=== PATIENT | female | born 1965 | race Caucasian/White ===

== ENCOUNTER 2018-08-03 18:49 | Emergency (ER) | payer BC ==
--- OUTSIDE RECORDS SUMMARY | 2018-08-03 20:20 | XMS REPORT | Continuity of Care Document ---
:1965 External Reference #:[id number] Author Name Sue Courtney M.D. Address [address] [facility] [place] [address] Care Team Providers Name Role Phone Sue Courtney Care Team Information Sheet Rocker Unavailable Sue Courtney Primary Care Physician Unavailable Payers Date Identification Numbers Payment Provider Subscriber Effective: 2011 Policy Number: [id number] Delvis Mercer Group Name: Rosalinda Hendrix Jose [address] [address] PayID: [id number] [place] [address] Advance Directives Description No Information Available Problems Date Description Provider Status Onset: 07/06/2018 Adjustment disorder with mixed Sue Courtney M.D. Active emotional features Family History Date Family Member(s) Observation Comments General No fam hx lung, colon, breast CA. no female cancers. No DM, SD, Stroke. Father Healthy. [place]. Mother 73 dt sepsis from diverticulosis. HTN, diverticulosis. Number of Children 3. ages 22, 25, 30. middle child/daughter has uveitis and pars plenitis - autoimmune inflammatory eye diseases. Had lenses surgically implanted age 22. First Brother HTN. [place]. First Sister healthy. [place]. Social History Type Date Description Comments Sex Unknown Marital Status Patient is Pets Household pets include 2 dogsHousehold pets dog - 03/2017. Occupation hazardous materials waste technician and phlebotomy Tobacco Use Start: Unknown Never Smoked Cigarettes ETOH Use Social Alcohol 2 drinks on a weekend night. Tobacco Use Start: Unknown Patient has never smoked Smoking Status Reviewed: 07/06/18 Patient has never smoked Exercise Type/Frequency Exercises regularly, Current strength/cross training 4-5 days a week. Seat Belt/Car Seat Always uses a seat belt Currently Active The patient is currently sexually active Contraceptive Methods Does not currently use any method of control Allergies, Adverse Reactions, Alerts Date Description Reaction Status Severity Comments 11/30/2012 NKDA Active 08/01/2009 Dust Active 08/01/2009 Seasonal Active 08/01/2009 PET Dander Active 08/01/2009 Fragrance Active 08/01/2009 Lactose Intolerence Active 08/01/2009 Blush Radha/Red Radha Active Medications Medication Date Status Form Strength Qnty SIG Indications Ordering Provider Vitamin D 08/08/ Active Capsules 68281Brpo 8caps take 1 Sue LSudha (Ergocalciferol 2018 capsule Roz, ) by mouth M.D. once weekly for 8 weeks total Vitamin D 07/14/ Active Tablets 2000Unit once Sue L. 2018 daily. Rachael Courtney Escitalopram 08/19/ Active Tablets 10mg 30tabs 1 by F43.21 Sue Vee Oxalate 2017 mouth Roz, every day M.D. Vitamin B12 / Active Tablets ER 1000mcg 1 by Unknown 0000 mouth every day Ciprofloxacin 07/13/ Hx Tablets 500mg 10tabs 1 by N39.0 Mary HCL 2016 - mouth Spencer, 08/19/ twice a RAD TECH 2016 day x 5d Escitalopram 07/06/ Hx Tablets 5mg 30tabs 1 by F43.21 Sue L. Oxalate 2016 - mouth Roz, 08/19/ every day M.D. 2016 Vitamin D 06/17/ Hx Capsules 51983Txfr 4caps take 1 Sue L. (Ergocalciferol 2016 - capsule Roz, ) 10/20/ by mouth M.D. 2016 once weekly for 8 weeks total Macrobid 06/19/ Hx Capsules 100mg 10caps 1 po bid Imani 2013 - with Roseorf, 06/24/ meals Afnp-C 2013 Zyrtec Allergy 11/30/ Hx Tablets 10mg 30tabs 1 po qd 477.9 Melisa 2012 - ;september fill Kevin, 03/10/ w/ Afnp-C 2015 generic Fluticasone 11/30/ Hx Suspension 50mcg/Act 1units 2 sprays 477.9 Sue L. Propionate 2012 - each Roz 03/10/ noskaris Cano 2015 qd Astelin 08/01/ Hx Solution 137mcg/Spr 1units 2 sprays 477.9 Melisa 2009 - ay per Kevin, 11/29/ nostril Afsabine-C 2012 bid Xyzal 08/01/ Hx Tabs 5mg 30tabs Take One 477.9 Melisa 2009 - Tablet By Kevin, 11/29/ Mouth Afsabine-C 2012 Every Day Benadryl / Hx Capsules 25mg 1-2 caps Unknown 0000 - q 4-6h 01/10/ prn 2012 Fish Oil / Hx Capsules 1000mg 1 po qd Unknown 0000 - 2012 Fibercon / Hx Tablets 625mg 60tabs 1po bid Unknown 0000 - with 2012 Claritin / Hx Tablets 10mg 30tabs 1 po qd Unknown 0000 - 2012 Benadryl / Hx Capsules 25mg 2 po qhs Unknown - 2016 Immunizations CPT Code Status Date Vaccine Lot # [id number] Given 07/04/2015 Tdap Tetanus, W Pertussis Vital Signs Date Vital Result Comment 07/06/2018 10:06am BP Systolic 116 mmHg BP Diastolic 78 mmHg Heart Rate 68 /min Body Temperature 98.1 F Respiratory Rate 18 /min Height 61 inches 5'1" Weight 147.00 lb BMI (Body Mass Index) 27.8 kg/m2 07/14/2017 1:32pm BP Systolic 108 mmHg BP Diastolic 60 mmHg Heart Rate 72 /min Body Temperature 97.8 F Respiratory Rate 16 /min Height 61.5 inches 5'1.50" Weight 146.50 lb BMI (Body Mass Index) 27.2 kg/m2 05/26/2017 1:06pm BP Systolic 112 mmHg BP Diastolic 78 mmHg Heart Rate 66 /min Body Temperature 98.7 F Respiratory Rate 16 /min Height 61.5 inches 5'1.50" Weight 146.00 lb BMI (Body Mass Index) 27.1 kg/m2 10/20/2016 3:44pm BP Systolic 110 mmHg BP Diastolic 70 mmHg Heart Rate 68 /min Body Temperature 98.4 F Respiratory Rate 16 /min Height 62 inches 5'2" Weight 143.00 lb BMI (Body Mass Index) 26.2 kg/m2 08/19/2016 1:39pm BP Systolic 110 mmHg BP Diastolic 70 mmHg Heart Rate 68 /min Body Temperature 98.6 F Height 62 inches 5'2" Weight 138.00 lb BMI (Body Mass Index) 25.2 kg/m2 07/13/2016 3:44pm BP Systolic 120 mmHg BP Diastolic 70 mmHg Heart Rate 68 /min Body Temperature 98.4 F Respiratory Rate 18 /min Height 62 inches 5'2" Weight 138.00 lb BMI (Body Mass Index) 25.2 kg/m2 07/06/2016 6:46pm BP Systolic 110 mmHg BP Diastolic 70 mmHg Heart Rate 78 /min Body Temperature 98.1 F Respiratory Rate 16 /min Height 62 inches 5'2" Weight 139.38 lb BMI (Body Mass Index) 25.5 kg/m2 05/07/2016 12:57pm BP Systolic 100 mmHg BP Diastolic 60 mmHg Heart Rate 76 /min Body Temperature 98.1 F Respiratory Rate 16 /min Height 62 inches 5'2" Weight 132.00 lb BMI (Body Mass Index) 24.1 kg/m2 03/10/2016 9:41am BP Systolic 122 mmHg BP Diastolic 76 mmHg Heart Rate 68 /min Body Temperature 98.0 F Respiratory Rate 16 /min Height 61.5 inches 5'1.50" Weight 136.00 lb BMI (Body Mass Index) 25.3 kg/m2 06/19/2013 9:22am BP Systolic 110 mmHg BP Diastolic 72 mmHg Heart Rate 68 /min Body Temperature 98.3 F Respiratory Rate 16 /min Height 61.5 inches 5'1.50" Weight 139.00 lb BMI (Body Mass Index) 25.8 kg/m2 01/10/2013 10:39am BP Systolic 110 mmHg BP Diastolic 70 mmHg Heart Rate 64 /min Body Temperature 98.5 F Respiratory Rate 16 /min Height 61.5 inches 5'1.50" Weight 139.50 lb BMI (Body Mass Index) 25.9 kg/m2 Right Visual Acuity Distance 20/20 [facility] Left Visual Acuity Distance 20/20 11/30/2012 9:08am BP Systolic 104 mmHg BP Diastolic 64 mmHg Heart Rate 78 /min Body Temperature 98.2 F Height 61 inches 5'1" Weight 135.50 lb BMI (Body Mass Index) 25.6 kg/m2 08/01/2009 1:15pm BP Systolic 110 mmHg BP Diastolic 68 mmHg Heart Rate 78 /min Body Temperature 98.7 F Height 61 inches 5'1" Weight 148.00 lb BMI (Body Mass Index) 28.0 kg/m2 Results Test Date Facility Test Result H/L Range Note 1,25-Dihydroxy 07/14/2017 [facility] Total 52 pg/mL 1, 2 Vitamin D By [place] [address] [facility] 1,25-Dihydroxy, [place] [address] Vitamin D (607)- - 1,25-Dihydroxy, Vitamin D-2 <10 pg/mL 1,25-Dihydroxy, Vitamin D-3 52 pg/mL Laboratory test 07/14/2017 Pierce Mikaela ([facility]) Vitamin D25 12 Low 30- 100 finding Laboratory test 05/26/2017 [facility] Antinuclear Negative [address] [place] [address] Antibodies, [place] [address] (608)- - Rheumatoid 05/26/2017 [facility] Ra Latex <10.0 IU/mL 0.0-13.9 Arthritis Factor [address] [place] [address] [facility] ([facility]) [place] [address] (605)- - CCP Abs Igg/Iga 05/26/2017 [facility] CCP Antibodies 2 units 0-[address] [place] [address] IgG/[place] [address] (600)- - Laboratory test 05/26/2017 [facility] ([facility]) TSH 1.68 mIU/L 0.50- 6.00 finding Comprehensive 05/26/2017 [facility] ([facility]) Sodium 142 mEq/L 134-149 Metabolic Prof Potassium 4.0 mEq/L 3.6-5.5 Chloride 104 mEq/L 94-112 Carbon Dioxide 29 mEq/L 21-32 Glucose 94 mg/dL 70-105 BUN 14 mg/dL 6-26 Creatinine 0.8 mg/dL 0.6-1.4 BUN/Creat Ratio 17.5 CALC 8.0-36.0 Calcium 9.5 mg/dL 8.6-10.2 Total Protein 7.4 g/dL 6.4-8.3 Albumin 4.8 g/dL 3.8-5.5 Globulin 2.6 g/dL 2.0-4.8 A/G Ratio 1.8 CALC 0.6-2.3 Alk. Phosphatase 46 U/L 30-110 Alt (SGPT) 26 U/L 7-35 Ast (Sgot) 22 U/L 5-34 Total Bilirubin 1.0 mg/dL 0.2-1.3 GFR Non- >60 ml/min/1.73m^ >=60 GFR >60 ml/min/1.73m^ >=60 CBC Electronic ([facility]) 05/26/2017 [facility] WBC 6.3 3.6-9.6 (607)- - RBC 4.51 3.90-5.70 Hemoglobin ([facility]/CMC/CTX) 14.5 g/dL 12.1 - 17.2 Hematocrit ([facility]ma/CMC/CTX) 43.6 % 36.1 - 50.3 Platelets 260 10^3/ul 150-400 Lymph% 31.6 % 17.0-48.0 Mixed% 4.3 Neutrophils % 64.1 Mean Corpuscular Vol 97 82.2-97.4 Mean Corpuscular Hemoglobin 32.1 27.6-33.3 Mean Corpuscular Hemo Concen 33.2 32.0-36.0 RDW 14.2 High 11.6-13.7 Mean Platelet Volume 7.2 5.5-11.0 Laboratory test finding 05/26/2017 [facility] Sedimentation Rate 9mm (607)- - Ua - Micro ([facility]) 07/13/2016 [facility] Appearance clear (607)- - Color yellow Glucose, Urine ([facility]ma/CMC/CTX) neg Bilirubin neg Ketones neg SP Grav <1.005 Blood neg PH 6.5 Protein neg Urobil 0.2 Nitrite neg Leukocytes (a/CMC/[facility]) neg Hyaline - /Lpf Granular - /Lpf WBC ([facility]) 0-1 # RBC - Mucus - /Lpf Epith occass /Lpf # Bacteria trace /Hpf # Amorphous - /Lpf Crystals, Fluid (a/CMC/CTX) - Z#Comments - Laboratory test 07/13/2016 [facility] Urine Culture positive Low > 100,000 finding (607)- - ([facility]ma/CMC) cfu/L=i Complete Blood 05/07/2016 Pierce Mikaela ([facility]) WBC 6.4 x10^3/UL 3.6-9.6 Count RBC 4.11 x10^6/UL 3.90-5.70 HGB 13.4 g/dL 12.1-17.2 HCT 39 % 36-50 MCV 95.0 fL 82.2-97.4 MCH 32.6 pg 27.6-33.3 MCHC 34.2 g/dL 33.0-35.5 RDW 12.9 % 11.6-13.7 PLT 291 x10^3/UL 150-400 MPV 6.4 fL Low 7.4-10.4 Gran # 4.4 x10^3/UL 1.5-7.2 Lymph# 1.7 x10^3/UL 0.7-4.9 Ada# 0.3 x10^3/UL 0.1-0.9 Gran % 68.4 % 42.2-75.2 Lymph % 26.8 % 20.5-51.1 Ada% 4.8 % 1.7-9.3 Laboratory test finding 05/07/2016 Stan Mikaela ([facility]) TSH 2.32 mIU/L 0.50-6.00 Comprehensive Metabolic 05/07/2016 Stan Mikaela ([facility]) Sodium 138 mEq/L 134-149 Prof Potassium 4.0 mEq/L 3.6-5.5 Chloride 96 mEq/L 94-112 Carbon Dioxide 26 mEq/L 21-32 Glucose 98 mg/dL 70-105 BUN 11 mg/dL 6-26 Creatinine 0.8 mg/dL 0.6-1.4 BUN/Creat Ratio 13.8 CALC 8.0-36.0 Calcium 9.5 mg/dL 8.6-10.2 Total Protein 6.9 g/dL 6.4-8.3 Albumin 4.3 g/dL 3.8-5.5 Globulin 2.6 g/dL 2.0-4.8 A/G Ratio 1.7 CALC 0.6-2.3 Alk. Phosphatase 46 U/L 30-110 Alt (SGPT) 12 U/L 7-35 Ast (Sgot) 12 U/L 5-34 Total Bilirubin 0.9 mg/dL 0.2-1.3 GFR Non- >60 ml/min/1.73m^ >=60 GFR >60 ml/min/1.73m^ >=60 Laboratory test 05/07/2016 Pierce Mikaela ([facility]) Vitamin D25 11 Low 30- 100 5 finding Lipid Profile 05/07/2016 Pierce Mikaela (a) Cholesterol 227 mg/dL High 120-200 Triglycerides 51 mg/dL 30-200 HDL Cholesterol 97 mg/dL High 30-85 6 LDL (Calculated) 120 CALC 0-129 VLDL Cholesterol 10 mg/dL 0-50 HDL Risk Factor 2.3 CALC 0.0-4.4 Laboratory test 01/19/2016 [facility] Urine Culture And SEE RESULT BELOW 7, 8 finding Sensitivities Laboratory test 06/19/2013 [facility] Urine Culture Escherichia coli 9 finding [address] [place] [address] [phone] Ua - Micro (a) 06/19/2013 [facility] Appearance CLOUDY (607)- - Color YELLOW Glucose NEG Bilirubin NEG Ketones NEG SP Grav 1.010 Blood SMALL # PH 6.0 Protein NEG Urobil 0.2 Nitrite POS # Leukocytes ([facility]ma/[facility]) SMALL # Hyaline - /Lpf Granular - /Lpf WBC ([facility]) 20-30 # RBC 10-12 # Mucus - /Lpf Epith RARE /Lpf # Bacteria 3+ /Hpf # Amorphous - /Lpf Crystals, Fluid ([facility]ma/CMC/CTX) - Z#Comments - CBC Auto Diff 01/11/2013 [facility] White Blood Count 6.9 10^3/uL 4.8-10.8 Red Blood Count 4.54 10^6/uL 4.0-5.4 Hemoglobin 14.1 g/dL 12.0-16.0 Hematocrit 44 % 35-47 Mean Corpuscular Volume 97 fL 80-97 Mean Corpuscular Hemoglobin 31 pg 27-31 Mean Corpuscular HGB Conc 32 g/dL 31-36 Red Cell Distribution Width 14 % 10.5-15 Platelet Count 247 10^3/uL 150-450 Mean Platelet Volume 9 um3 7.4-10.4 Abs Neutrophils 4.4 10^3/uL 1.5-7.7 Abs Lymphocytes 1.6 10^3/uL 1.0-4.8 Abs Monocytes 0.4 10^3/uL 0-0.8 Abs Eosinophils 0.4 10^3/uL 0-0.6 Abs Basophils 0 10^3/uL 0-0.2 Abs Nucleated RBC 0 10^3/uL Granulocyte % 64.4 % 38-83 Lymphocyte % 23.7 % Low 25-47 Monocyte % 6.1 % 1-9 Eosinophil % 5.3 % 0-6 Basophil % 0.5 % 0-2 Nucleated Red Blood Cells % 0 Comp Metabolic Panel 01/11/2013 [facility] Sodium 137 mmol/L 133-145 Potassium 4.7 mmol/L 3.5-5.0 Chloride 102 mmol/L 101-111 Co2 Carbon Dioxide 28.0 mmol/L 22-32 Anion Gap 7.0 mmol/L 2-11 Glucose 78 mg/dL 70-100 Blood Urea Nitrogen 16 mg/dL 6-24 Creatinine 0.70 mg/dL 0.50-1.40 BUN/Creatinine Ratio 22.9 High 8-20 Calcium 9.4 mg/dL 8.1-9.9 Total Protein 6.3 g/dL 6.2-8.1 Albumin 4.1 g/dL 3.6-5.4 Globulin 2.2 g/dL 2-4 Albumin/Globulin Ratio 1.9 1-3 Total Bilirubin 1.3 mg/dL 0.4-1.5 Alkaline Phosphatase 59 U/L 30-110 Alt 12 U/L Low 14-54 Ast 16 U/L 12-42 Egfr Non- 90.1 >60 Egfr 115.9 >60 10 Lipid Profile (Trig/Chol/HDL) 01/11/2013 [facility] Triglycerides 56 mg/dL 40- 200 Cholesterol 235 mg/dL High Less than 200 HDL Cholesterol 80 mg/dL High 40-60 11 Cholesterol/HDL Ratio 2.9 Average 1-4.44 LDL Cholesterol 143.8 High Less Than 100 12 Ua - Non Micro ([facility]) 01/10/2013 [facility] Appearance clear (607)- - Color yellow Glucose - Bilirubin - Ketones - SP Grav 1.010 Blood - PH 6.5 Protein - Urobil 0.2 Nitrite - Leukocytes ([facility]) - 1 1sst 2 Reference Range: Adults: 21 - 65 3 Negative <1:80 Borderline 1:80 Positive >1:80 4 Negative <20 Weak positive 20 - 39 Moderate positive 40 - 59 Strong positive >59 5 RESULTS VERIFIED BY REPEAT ANALYSIS 6 RESULTS VERIFIED BY REPEAT ANALYSIS 7 [id number] SEE RESULT BELOW Name: DAMARI MERCER : [address]: Marlee Colin MD Acct: [id number] Unit: [id number] AGE: 50 Location: [facility] Re01/19/16 SEX: F Status: DEP ER SPEC: [id number] BELEN: 01/19/[address] [facility] [address]: Marlee Colin MD REQ: [id number] RECD: 01/20/16 STATUS: SHERLYN ROMERO DR: Sue Courtney MD _ SOURCE: URINE SPDESC: ORDERED: Urine Culture COMMENTS: [id number] Procedure Result Reported Site Urine Culture Final 01/22/16- 08 ML Organism 1 ESCHERICHIA COLI Allen Count 75-100,000 (Many) CFU/ML 1. ESCHERICHIA COLI M.I.C. RX --------- ------ Ampicillin <=2 S Cefazolin <=4 S Cefepime <=1 S Ceftriaxone <=1 S Ciprofloxacin <=0.25 S Gentamicin <=1 S Levofloxacin <=0.12 S Meropenem <=0.25 S Nitrofurantoin <=16 S Tetracycline <=1 S Pipercillin/Tazobactam <=4 S Trimethoprim/Sulfamethoxazole <=20 S Amoxicillin/Clavulanic Acid <=2 S Aztreonam <=1 S Contact the Microbiology Department for any additional antibiotic reporting. * ML - MAIN LAB ([facility]) . END OF REPORT * ML=Testing performed at Main Lab DEPARTMENT OF PATHOLOGY, [address] [place] [address] Lior Zambrano M.D. Director [facility] # [id number] 9 Escherichia coli >100,000 col/ml URINE CULTURE organism 1 Escherichia coli >100,000 col/ml Amikacin <=2 Susceptible Amoxicillin/CA 4 Susceptible Ampicillin 4 Susceptible Aztreonam <=1 Susceptible Cefazolin <=4 Susceptible Cefoxitin <=4 Susceptible Ciprofloxacin <=0.25 Susceptible Ertapenem <=0.5 Susceptible Gentamicin <=1 Susceptible Imipenem <=0.25 Susceptible Levofloxacin <=0.12 Susceptible Nitrofurantoin <=16 Susceptible Piperacillin/tazobactam <=4 Susceptible Trimethoprim/Sulfa <=20 Susceptible 10 Because ethnic data is not always readily available, this report includes an eGFR for both -Americans and non- Americans. The National Kidney Disease Education Program (NKDEP) does not endorse the use of the MDRD equation for patients that are not between the ages of 18 and 70, are , have extremes of body size, muscle mass, or nutritional status, or are non- or non-. According to the National Kidney Foundation, irrespective of diagnosis, the stage of the disease is based on the level of kidney function: Stage Description GFR(mL/min/1.73 m(2)) 1 Kidney damage with normal or decreased GFR 90 2 Kidney damage with mild decrease in GFR 60-89 3 Moderate decrease in GFR 30-59 4 Severe decrease in GFR 15-29 5 Kidney failure <15 (or dialysis) 11 HDL Interpretation: Undesirable: High Risk: Less than 40 mg/dL Desirable: Low Risk: Greater than 60 mg/dL 12 LDL Interpretation: Low Risk Optimal Level: LDL Less than 100 mg/dL Near or Above Optimal: LDL 100-129 mg/dL Borderline High Risk: LDL 130-159 mg/dL High Risk: LDL 160-189 mg/dL Very High Risk: LDL Greater than 189 mg/dL Procedures Date Code Description Status 10/29/2016 [id number] Mammogram Completed 10/27/2016 [id number] Mammogram Completed 08/30/2015 [id number] Mammogram Completed 07/10/2014 [id number] Mammogram Completed 06/05/2013 [id number] Mammogram Completed 01/10/2013 10217 Vision Test- screening test of visual acuity, Completed quantitative, bila Encounters Type Date Location Provider Dx Diagnosis Office Visit 07/14/2017 Main Office Sue Vee M41.25 Other idiopathic 1:40p Rachael Courtney scoliosis, thoracolumbar region E55.9 Vitamin D deficiency, unspecified Z82.61 Family history of arthritis F43.21 Adjustment disorder with depressed mood Office Visit 05/26/2017 1:00p Main Office Sue Courtney, Z00.00 Encntr for Rachael general adult medical exam w/o abnormal findings F43.21 Adjustment disorder with depressed mood M41.25 Other idiopathic scoliosis, thoracolumbar region R01.0 Benign and innocent cardiac murmurs Z82.61 Family history of arthritis Office Visit 10/20/2016 3:20p [facility] Office Sue Nixon3.21 Adjustment Rachael Courtney disorder with depressed mood E55.9 Vitamin D deficiency, unspecified Office Visit 08/19/2016 1:40p Main Office Sue Vee F43.21 Adjustment Rachael Courtney disorder with depressed mood Office Visit 07/13/2016 3:30p Main Office Mary Palmer N39.0 Urinary tract RAD TECH infection, site not specified Office Visit 07/06/2016 6:40p Main Office Sue Vee F43.21 Adjustment Rachael Courtney disorder with depressed mood Office Visit 05/07/2016 1:00p [facility] Sue Vee Z00.00 Encntr for Rachael Courtney general adult medical exam w/o abnormal findings Office Visit 03/10/2016 9:30a [facility] Adelaida N39.0 Urinary tract [place], RAD TECH infection, site not specified Office Visit 06/19/2013 9:00a Main Office Imani 599.0 UTI Urinary Tract [place], Infection Site Afnp-C Not Spec Office Visit 01/10/2013 10:40a Main Office Sue Vee V70.0 Examination Rachael Courtney General Medical Routine AT [facility] 477.9 Rhinitis Allergic Cause Unspec V72.0 Examination Eyes & Vision Office Visit 11/30/2012 9:15a [facility] Melisa Kevin, 477.9 Rhinitis Afnp-C Allergic Cause Unspec 381.81 Eustachian Tube Dysfunction 381.01 Otitis Media Serous Acute Office Visit 08/01/2009 1:30p Main Office Melisa Brown, 477.9 Rhinitis Allergic Afnp-C Cause Unspec Plan of Treatment 07/06/2018 - Sue Courtney M.D.Z00.00 Encounter for general adult medical examination without abnormal findingsNew Labs:CBC Electronic-ALL Lab Compani, Ordered: 07/06/18CCC-Comp+Lipid ([facility]), Ordered: 07/06/18TSH ([facility]), Ordered: 07/06/18Comments:You are in excellent general health. I recommend regular physical exams with attention to good nutrition and exercise, eye exams every other year, and dental exams twice yearly. ~B_~U_Goals:~u_~b_2 fresh fruits daily3 helpings of fresh green and multicolored vegetablesEat from the whole color spectrum. 40-60 Oz water daily~B_~U_MOVE YOUR BODY.~u_~b_ Bodies were made to be moved. exercise 30 minutes at least 4-5 times weeklyFollow up:fu 2 weeks after the fasting bloodwork.F43.23 Adjustment disorder with mixed anxiety and depressed moodComments:Stable. Continue present meds.E55.9 Vitamin D deficiency, unspecifiedNew Labs:Vitamin D, 25Hydroxy([facility]/LC , Ordered: 07/06/18M25.50 Pain in unspecified jointNew Labs:Camila Panel-LD ( [facility]), Ordered: 07/06/18Sedimentation Rate, Ordered: 07/06/18Cyclic Citrullinated Peptide, Ordered: 07/06/18CRP, Ordered: 07/06/18Comments:you have some inflammation in general.an anti-inflammatory could be very helpful.Basically a paleo diet. you could look at the [employer] program.AllComments:~B_~U_Medication Management~b_~u_ Patient Understands medications she's taking? Yes No Are there Barriers to Adherence? Yes No Has the patient been asked about herbal supplements and therapies, and OTC meds? Yes No
[2018-08-03 20:40] VITALS: BP 112/66
--- NOTE | 2018-08-03 21:20 | UC ---
Elbow Pain - HPI Summary HPI Summary: 52-year-old female presents with complaints of right elbow pain. States she was playing Frisbee with her to [employer], was in the process of throwing the Frisbee when she accidentally struck her [employer] in the head with her right elbow. She complains of pain to the medial aspect of the elbow. Pain worsens with full flexion. States she had some numbness or tingling in the ulnar hand, pinky and ring finger immediately after the injury however this is since resolved. - History of Current Complaint Chief Complaint: UCUpperExtremity Stated Complaint: ELBOW COMPLAINT Time Seen by Provider: 08/03/18 21:06 Hx Obtained From: Patient Hx Last Menstrual Period: 1 WEEK AGO Pain Intensity: 2 - Allergies/Home Medications Allergies/Adverse Reactions: Allergies Allergy/AdvReac Type Severity Reaction Status Date / Time No Known Allergies Allergy Verified 08/03/18 20:40 Home Medications: Home Medications Escitalopram * [Lexapro *] 20 mg PO DAILY 08/03/18 [History Confirmed 08/03/18] Ibuprofen TAB* [Motrin TAB* 800 MG] 800 mg PO Q6H PRN 08/03/18 [History Confirmed 08/03/18] PMH/Surg Hx/FS Hx/Imm Hx Previously Healthy: Yes Psychological History: Depression - Surgical History Surgical History: None - Family History Known Family History: Positive: Hypertension - Social History Alcohol Use: Occasionally Substance Use Type: None Smoking Status (MU): Never Smoked Tobacco Review of Systems All Other Systems Reviewed And Are Negative: Yes Constitutional: Positive: Negative Skin: Negative: Bruising Respiratory: Positive: Negative Cardiovascular: Positive: Negative Gastrointestinal: Positive: Negative Genitourinary: Positive: Negative Motor: Negative: Weakness Neurovascular: Negative: Decreased Sensation Musculoskeletal: Positive: Other: - See HPI Neurological: Positive: Negative Is Patient Immunocompromised?: No Physical Exam - Summary Physical Exam Summary: GENERAL APPEARANCE: Well developed, well nourished, alert and cooperative, and appears to be in no acute distress. CARDIAC: Normal S1 and S2. No S3, S4 or murmurs. Rhythm is regular. There is no peripheral edema, cyanosis or pallor. Extremities are warm and well perfused. Capillary refill is less than 2 seconds. Peripheral pulses intact. LUNGS: Clear to auscultation without rales, rhonchi, wheezing or diminished breath sounds. ABDOMEN: Positive bowel sounds. Soft, nondistended, nontender. No guarding or rebound. No masses or hepatosplenomegally. MUSKULOSKELETAL: Normal muscular development. Normal gait. EXTREMITIES: Mild tenderness to the lateral aspect of the right elbow without erythema, ecchymosis, or gross deformity. Full passive ROM with discomfort at full flexion. NEUROLOGICAL: Strength and sensation symmetric and intact to bilateral upper extremities. SKIN: Skin normal color, texture and turgor with no lesions or eruptions. Triage Information Reviewed: Yes Vital Signs: Initial Vital Signs Temp 97.8 F 08/03/18 20:36 Pulse 72 08/03/18 20:36 Resp 18 08/03/18 20:36 BP 112/66 08/03/18 20:36 Pulse Ox 98 08/03/18 20:36 Vital Signs Reviewed: Yes Diagnostics - Radiology No standard instances Radiology Interpretation Completed By: ED Physician - No acute fracture or dislocation. Elbow Pain Course/Dx - Course Course Of Treatment: 52-year-old female presents with complaints of right elbow pain. States she was playing Frisbee with her to [employer], was in the process of throwing the Frisbee when she accidentally struck her [employer] in the head with her right elbow. She complains of pain to the medial aspect of the elbow. Pain worsens with full flexion. States she had some numbness or tingling in the ulnar hand, pinky and ring finger immediately after the injury however this is since resolved. Afebrile. Vital signs stable. Exam reveals an adult female in no acute distress although mildly uncomfortable holding her right arm in a position of comfort, there is some mild tenderness over the medial aspect of the right elbow without erythema, ecchymosis, or gross deformity, strength intact, full passive range of motion with mild discomfort at full flexion, circulation sensation intact distally, otherwise exam unremarkable. X-ray shows no acute fracture. Recommending symptomatic treatment for a contusion of the right elbow including sling 2 days, gentle range of motion exercises, [id number] analgesics, and RICE. She is to follow-up with the primary care provider in 7 days if symptoms do not improve. Anticipatory guidance and warning symptoms reviewed with the patient. Verbalizes understanding and agrees with plan of care. - Differential Dx/Diagnosis Differential Diagnosis/HQI/PQRI: Contusion, Fracture (Closed), Sprain Provider Diagnosis: Contusion of right elbow Discharge - Sign-Out/Discharge Documenting (check all that apply): Patient Departure All imaging exams completed and their final reports reviewed: No - Discharge Plan Condition: Stable Disposition: HOME Patient Education Materials: Contusion in Adults (ED) Referrals: Sue Courtney MD [Primary Care Provider] - 7 Days (If no improvement.) Additional Instructions: [facility] showed no evidence of a fracture. The x-ray will be reviewed by the radiologist tomorrow. We will contact you if they see anything that would change your plan of care. Rest the arm as much as possible. Avoid heavy lifting and strenuous activities. Wear the sling provided to you for comfort and support for the next 2 days. Be sure to remove your arm from the sling every 1-2 hours while awake and perform gentle range of motion exercises. You may remove to shower and sleep. Do not use for more than 2 days but you should continue with the range of motion exercises. Apply ice to the affected area for 15-20 minutes at least 4 times a day for next few days. Keep the arm elevated at the level of the heart while sitting to reduce swelling. Use acetaminophen (Tylenol) or ibuprofen (Advil, Motrin) according to directions as needed for pain. Follow up with your primary care provider in 7 days if no improvement in symptoms. Seek immediate medical attention in the emergency room if you have severe pain not managed with pain medication, lose function of the arm, develop persistent numbness or tingling in the arm, hands, or fingers, or any worsening of symptoms. - Billing Disposition and Condition Condition: STABLE Disposition: Home
== END 2018-08-03 22:00 | disposition home or self-care (01) ==
LOC: UCEAST 18:49
DX: S50.01XA Contusion of right elbow, initial encounter (principal); F32.9 Major depressive disorder, single episode, unspecified; Z79.899 Other long term (current) drug therapy; W54.1XXA Struck by dog, initial encounter; Y93.74 Activity, frisbee; Y92.9 Unspecified place or not applicable
CPT/HCPCS: 99212; G0463

== ENCOUNTER 2019-03-20 07:59 | Emergency (ER) | payer BC ==
[2019-03-20 08:04] VITALS: BP 128/73
--- NOTE | 2019-03-20 08:23 | UC ---
Throat Pain/Nasal Jose Carlos HPI - HPI Summary HPI Summary: 53-year-old woman comes in with chief complaint of 8 days of upper respiratory tract infection symptoms. Rhinorrhea is green. Initially started with a sore throat. No fevers measured. Now its gone into her chest she's having chest congestion. Chest congestion with cough is worse at night when she is laying down. Does feel some wheezing in the middle the night. No history of asthma or COPD she is not a smoker. She has been taking [id number] medicines which do help some with the symptoms. Overall she's not improving in next getting worse. - History of Current Complaint Chief Complaint: UCRespiratory Stated Complaint: chesT CONGESTION Time Seen by Provider: 03/20/19 08:10 Hx Last Menstrual Period: 1 WEEK AGO Pain Intensity: 0 - Allergies/Home Medications Allergies/Adverse Reactions: Allergies Allergy/AdvReac Type Severity Reaction Status Date / Time No Known Allergies Allergy Verified 03/20/19 08:05 PMH/Surg Hx/FS Hx/Imm Hx Previously Healthy: Yes - Surgical History Surgical History: None - Family History Known Family History: Positive: Hypertension - Social History Alcohol Use: Occasionally Substance Use Type: None Smoking Status (MU): Never Smoked Tobacco Review of Systems All Other Systems Reviewed And Are Negative: Yes Constitutional: Positive: Other - SEE HPI Skin: Positive: Negative Eyes: Positive: Negative ENT: Positive: Sore Throat, Nasal Discharge, Sinus Congestion Respiratory: Positive: Shortness Of Breath, Cough, Other - SEE HPI Cardiovascular: Positive: Negative Gastrointestinal: Positive: Negative Motor: Positive: Negative Neurovascular: Positive: Negative Musculoskeletal: Positive: Negative Neurological: Positive: Negative Psychological: Positive: Negative Is Patient Immunocompromised?: No Physical Exam Triage Information Reviewed: Yes Appearance: Well-Appearing, No Pain Distress, Well-Nourished Vital Signs: Initial Vital Signs Temp 98.9 F 03/20/19 08:02 Pulse 75 03/20/19 08:02 Resp 16 03/20/19 08:02 BP 128/73 03/20/19 08:02 Pulse Ox 100 03/20/19 08:02 Vital Signs Reviewed: Yes Eye Exam: Normal Eyes: Positive: Conjunctiva Clear ENT: Positive: Pharyngeal erythema, Nasal congestion, TMs normal Neck: Positive: Supple Respiratory: Positive: Lungs clear, Normal breath sounds, No respiratory distress Cardiovascular: Positive: RRR Musculoskeletal: Positive: Strength Intact, ROM Intact Neurological: Positive: Alert, Muscle Tone Normal Psychological: Positive: Age Appropriate Behavior Skin Exam: Normal Throat Pain/Nasal Course/Dx - Course Course Of Treatment: DISCUSSED VIRAL VERSES BACTERIAL INFECTIONS AND THE ROLE OF ANTIBIOTICS. THE PATIENT PREFERS TO BE ON ANTIBIOTICS AT THIS TIME. - Differential Dx/Diagnosis Provider Diagnosis: Bronchitis Discharge ED - Sign-Out/Discharge Documenting (check all that apply): Patient Departure All imaging exams completed and their final reports reviewed: No Studies - Discharge Plan Condition: Stable Disposition: HOME Prescriptions: Albuterol HFA INHALER* [Ventolin HFA Inhaler*] 2 puff INH Q4H PRN #1 mdi PRN Reason: Wheezing Azithromyxin JAMES (NF) [Z-James (Zithromax) 250 mg tabs #6] 2 tab PO .TODAY, THEN 1 DAILY #6 tab Patient Education Materials: Acute Bronchitis (ED), Bronchospasm (ED) Referrals: Sue Courtney MD [Primary Care Provider] - Additional Instructions: FOLLOW UP WITH YOUR DOCTOR IF NOT COMPLETELY IMPROVED. GET RECHECKED SOONER IF YOUR CONDITION WORSENS OR ANY QUESTIONS OR CONCERNS. - Billing Disposition and Condition Condition: STABLE Disposition: Home
== END 2019-03-20 08:31 | disposition home or self-care (01) ==
LOC: UCEAST 07:59
DX: J40 Bronchitis, not specified as acute or chronic (principal); R09.89 Other specified symptoms and signs involving the circulatory and respiratory systems; R09.81 Nasal congestion
CPT/HCPCS: 99212; G0463